=== PATIENT | female | born 1995 | race Hispanic/Latino ===

== ENCOUNTER 2023-08-13 21:54 | Emergency (ER) | payer SELFPAY ==
--- NOTE | ~2023-08-13 | US_ITS ---
Pelvic ultrasound. Clinical History: First trimester , vaginal bleeding Technique: Realtime transabdominal and transvaginal scanning of the pelvis was performed. Color flow Doppler and Doppler spectral analysis were performed. Findings: The uterus is anteverted, and contains an intrauterine gestation. Yolk sac and pole a re present. heart rate is 142 bpm. [place]-rump length of 1.5 cm corresponds to an estimated gest ational age of 8 weeks 0 days. The right ovary measures 3.9 x 3.3 x 3.3 cm. No significant right ovarian or adnexal mass is seen. The left ovary measures 3.8 x 2 0.0, 4.4 cm. No significant left ovarian or adnexal mass is seen. There is no evidence of free fluid in the cul de sac. Impression: Live intrauterine gestation with estimated gestational age of 8 weeks 0 days. heart rate is 142 bpm. Reviewed, dictated and finalized at [facility]. [employer] Impression: Live intrauterine gestation with estimated gestational age of 8 weeks 0 days. F etal heart rate is 142 bpm.
[2023-08-13 22:19] VITALS: BP 113/68; PULSE 90; RESP 16; TEMP 37.2; O2SAT 100
--- NOTE | 2023-08-13 23:30 | PC.NURSE ---
Spoke with Shelia from [facility] about faxing a copy of pt's HCG results.
[2023-08-13 23:35] LABS: Basophils Percent Auto 0.3 % (0.2-1.2); Eosinophils Percent Auto 0.1 % (0-4.4); Hemoglobin 11.6 g/dL (12.0-15.0); Immature Granulocyte Absolute 0.03 K/mm3 (0.00-0.031); Immature Granulocyte Percent A 0.3 % (0-0.5); Lymphocytes Absolute Auto 1.31 K/mm3 (0.9-3.2); Lymphocytes Percent Auto 12.6 % (18.3-44.2); Mean Corpuscular HGB Conc 32.2 g/dl (32-36); Mean Corpuscular Hemoglobin 30.4 pg (26-34); Mean Corpuscular Volume 94.5 fl (80-100); Mean Platelet Volume 13.4 fl (7.4-10.4); Monocytes Absolute Auto 0.3 K/mm3 (0.1-0.6); Monocytes Percent Auto 3.1 % (2.6-8.5); Neutrophils Absolute Auto 8.7 K/mm3 (1.3-6.7); Neutrophils Percent Auto 83.6 % (45.5-73.1); Platelet Count Result 223 k/mm3 (150-375); Red Blood Count 3.81 M/mm3 (4.2-5.4); Red Cell Distribution Width 12.7 % (11.5-14.5); White Blood Count 10.4 K/mm3 (4.5-10.0)
[2023-08-13 23:48] LABS: Alanine Aminotransferase 27 U/L (6-35); Albumin Level 3.9 g/dL (3.5-5.1); Alkaline Phosphatase 67 U/L (38-126); Anion Gap 9 mmol/L (8-16); Aspartate Amino Transferase 26 U/L (14-36); Bilirubin,Total 0.4 mg/dL (0.2-1.3); Blood Urea Nitrogen 5 mg/dL (7-17); Carbon Dioxide 22 mmol/L (22-30); Chloride 106 mmol/L (98-107); Estimated Glomerular Filt Rate > 60; Glucose 93 mg/dL (65-110); Sodium 137 mmol/L (137-145)
--- NOTE | 2023-08-14 01:51 | ED.GENADULT ---
HPI - General Adult General Chief complaint: Vaginal Bleeding Stated complaint: POSSIBLE ECTOPIC Time Seen by Provider: 08/13/23 22:37 History of Present Illness HPI narrative: patient 16-year-old male who presents emergency department with chief complaint of vaginal bleeding. Patient was seen at [facility] had blood work and and exam they patient was transferred to our facility due to lack of ultrasound capability. The patient has had cramping in the lower abdomen and there was concern for ectopic . Related Data Allergies Allergy/AdvReac Type Severity Reaction Status Date / Time No Known Allergies Allergy Verified 08/13/23 22:16 Review of Systems Review of Systems: A 10 system review of systems was completed on the patient and is negative except for what is stated in the HPI. Nursing and ancillary documentation was reviewed. Exam Narrative: GENERAL: Well-appearing, well-nourished, and in no acute distress. HEAD: Normocephalic, atraumatic. EYES: PERRLA and EOMI. ENT: Nares clear, no rhinorrhea or epistaxis. Mucous membranes moist. NECK: Supple. CHEST: Clear to auscultation. No respiratory distress. HEART: Regular rate and rhythm. No murmur heard. Normal peripheral pulses. ABDOMEN: Soft , mild tenderness in the lower quadrants of the abdomen nondistended, normal active bowel sounds. EXTREMITIES: Normal range of motion. No edema. SKIN: Warm, dry, no rash. NEURO: No focal deficits. Alert and oriented x3. PSYCH: Normal mood and affect. Course Vital Signs Vital signs: Vital Signs Temperature 37.2 C 08/13/23 22:19 Pulse Rate 90 08/13/23 22:19 Respiratory Rate 16 08/13/23 22:19 Blood Pressure 113/68 08/13/23 22:19 Pulse Oximetry 100 08/13/23 22:19 Temperature 37.2 C 08/13/23 22:19 Pulse Rate 84 08/14/23 04:49 Respiratory Rate 17 08/14/23 04:49 Blood Pressure 112/75 08/14/23 04:49 Pulse Oximetry 100 08/14/23 04:49 Medical Decision Making [facility] Narrative Medical decision making narrative: differential diagnosis includes threatened miscarriage, ectopic patient is Rh positive from paperwork from [place] ultrasound showed a 7week 6 day without evidence of ectopic. Vital Signs Vital Signs: Vital Signs Temperature 37.2 C 08/13/23 22:19 Pulse Rate 90 08/13/23 22:19 Respiratory Rate 16 08/13/23 22:19 Blood Pressure 113/68 08/13/23 22:19 Pulse Oximetry 100 08/13/23 22:19 Temperature 37.2 C 08/13/23 22:19 Pulse Rate 84 08/14/23 04:49 Respiratory Rate 17 08/14/23 04:49 Blood Pressure 112/75 08/14/23 04:49 Pulse Oximetry 100 08/14/23 04:49 Lab Data 08/13/23 23:20 08/13/23 23:20 Labs: Lab Results 08/13/23 08/14/23 Range/Units 23:20 01:28 WBC 10.4 H (4.5-10.0) K/mm3 RBC 3.81 L (4.2-5.4) M/mm3 Hgb 11.6 L (12.0-15.0) g/dL Hct 36.0 L (37.0-47.0) % MCV 94.5 (80-100) fl MCH 30.4 (26-34) pg MCHC 32.2 (32-36) g/dl RDW 12.7 (11.5-14.5) % Plt Count 223 (150-375) k/mm3 MPV 13.4 H (7.4-10.4) fl Immature Gran % (Auto) 0.3 (0-0.5) % Neut % (Auto) 83.6 H (45.5-73.1) % Lymph % (Auto) 12.6 L (18.3-44.2) % [place] % (Auto) 3.1 (2.6-8.5) % Eos % (Auto) 0.1 (0-4.4) % Baso % (Auto) 0.3 (0.2-1.2) % Lymph # (Auto) 1.31 (0.9-3.2) K/mm3 [place] # (Auto) 0.3 (0.1-0.6) K/mm3 Eos # (Auto) 0.0 (0-0.3) K/mm3 Baso # (Auto) 0.0 (0.0-0.1) K/mm3 Abs Immat Gran (auto) 0.03 (0.00-0.031) K/mm3 Absolute Neuts (auto) 8.7 H (1.3-6.7) K/mm3 Absolute Nucleated RBC 0.0 (0.0-0.012) K/mm3 Nucleated RBC % 0.0 (0.0-0.2) % % Immature Plt Fraction 15.0 H (0.9-11.2) % Sodium 137 (137-145) mmol/L Potassium 4.0 (3.4-5.0) mmol/L Chloride 106 (98-107) mmol/L Carbon Dioxide 22 (22-30) mmol/L Anion Gap 9 (8-16) mmol/L BUN 5 L (7-17) mg/dL Creatinine 0.50 L
[2023-08-14 01:52] LABS: Bacteria Urine None Seen /hpf; Non Pathogenic Casts 0-2; RBC Urine >100 /hpf (0-2); Squamous Epithelial Cell Urine None seen /hpf (Few)
[2023-08-14 02:00] LABS: Appearance Urine Turbid (Clear); Bilirubin Urine 1+ (Negative); Blood Urine 3+ (Negative); Color Urine Orange (Yellow); Glucose Urine UA Negative (Negative); Ketones Urine 1+ mg/dL (Negative); Leukocyte Esterase Ur 1+ LEU/UL (Negative); Nitrate Urine Negative (Negative); Protein Urine Trace mg/dL (Negative); Specific Grav Ur 1.023 (1.001-1.035); pH Urine 5.5 (5.0-9.0)
[2023-08-14 02:01] LABS: Add Urine Microscopic? YES
--- NOTE | 2023-08-14 02:42 | PC.NURSE ---
Report received from CHINEDU Orozco. Assumed care of patient at this time.
[2023-08-14 02:52] VITALS: BP 116/81; PULSE 82; RESP 17; O2SAT 100
[2023-08-14 04:49] VITALS: BP 112/75; PULSE 84; RESP 17; O2SAT 100
== END 2023-08-14 05:15 | disposition home or self-care (01) ==
PROVIDERS: Physician Assistant; Emergency Provider Emergency Medicine
DX: O20.0 Threatened abortion (principal); Z3A.01 Less than 8 weeks gestation of pregnancy
CPT/HCPCS: 36415; 76801; 80053; 81001; 84702; 85025; 85055; 85461; 86850; 86900; 86901; 87086; 87088; 99284